=== PATIENT | male | born 1950 | race Caucasian/White ===

== ENCOUNTER → 2020-09-25 | Outpatient (CLI) | payer MEDICARE, OTHER ==
[~2020-09-25] MED LIST: ACYC-40 PO; AMLO-150 PO; CALC0.25 PO; CALC200T24 PO; CELE200C PO; DEXA4TAB66 PO; DOCU-131 PO; FENT1PAT75 TD; HYDR-2214 PO; MELO15TA24 PO; OXYC10TA6 PO; POLY17PO5 PO; QUET25TA7 PO; QUET50TA5 PO; QUIN40TA15 PO
== END | disposition home or self-care (01) ==
LOC: CFH 14:36
PROVIDERS: ATTEND Pathology Hematology
DX: C90.00 Multiple myeloma not having achieved remission (principal); Z51.11 Encounter for antineoplastic chemotherapy; Z79.899 Other long term (current) drug therapy

== ENCOUNTER 2020-11-15 12:08 | Emergency (ER) | payer MEDICARE ==
[~2020-11-15] VITALS: Ht 162.6 cm; Wt 57.6 kg
--- NOTE | 2020-11-15 13:23 | NUR ---
PT HAS CO CONSPATION FROM CHEMO AND NARCOTICS. 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 IMAGE COMPLETE
[2020-11-15] MEDS ORDERED: METHYLNALTREXONE 12 MG/0.6 ML SYR SQ ONE ×2 (14:30→14:58)
--- NOTE | 2020-11-15 14:41 | NUR ---
MEDS ORDERED FROM PHARMACY
--- NOTE | 2020-11-15 15:30 | NUR ---
Pt DOES NOT HAVE URGE FOR BM AFTER RELISTOR
[2020-11-15] MEDS ORDERED: PINK LADY ENEMA 490 ML BOTTLE PR ONE (16:00)
--- NOTE | 2020-11-15 16:54 | NUR ---
pink lady administered. pt laying on side. call light in reach
[2020-11-15] MEDS ORDERED: MAGNESIUM CITRATE 300ML ORAL SOL ONE (18:14)
--- NOTE | 2020-11-15 18:22 | NUR ---
PT GIVEN MAG CITRATE. WILL OBSERVER TO SEE IF PT HAS BM. SEEN BY
[2020-11-15] MEDS ORDERED: MAGNESIUM CITRATE 300ML ORAL SOL PO ONE (18:30)
--- NOTE | 2020-11-15 18:40 | NUR ---
GIVEN WARM BLANKETS, PILLOW. PT DRINKING MAG CITRATE
--- NOTE | 2020-11-15 18:44 | NUR ---
REPORT TO JIA
[2020-11-15 18:50] VITALS: BP 145/86
--- NOTE | 2020-11-15 18:50 | NUR ---
FIRST ENCOUNTER WITH PATIENT. PATIENT RESTING IN STRETCHER DRINKING MAG CITRATE. DENIES ANY NEEDS AT THIS TIME. CALL TAVARES IN REACH. BED IN LOW POSITION. VSS. WILL CONTINUE TO MONITOR.
--- NOTE | 2020-11-15 20:30 | NUR ---
DR. HUDSON AND THIS RN AT BEDSIDE. PATIENT STILL UNABLE TO HAVE BM. WILL TRY ANOTHER ENEMA.
--- NOTE | 2020-11-15 20:50 | NUR ---
PATIENT GIVEN SALINE ENEMA PER VERBAL ORDER FROM MD HUDSON
--- NOTE | 2020-11-15 21:19 | NUR ---
RN TO BEDSIDE TO CHECK ON PATIENT. PATIENT SITTING ON BEDSIDE COMMODE- NO BM JUST GAS. WILL CONTINUE TO MONITOR.
--- NOTE | 2020-11-15 22:06 | NUR ---
Patient given discharge instructions and they have confirmed that they understand the instructions. Patient ambulatory with steady gait. NAD, all questions answered appropriately, denies additional needs at this time. No personal belongings left in room after discharge.
== END 2020-11-15 22:16 | disposition home or self-care (01) ==
LOC: ED 13:21
DX: K59.00 Constipation, unspecified (principal); R11.2 Nausea with vomiting, unspecified; R94.31 Abnormal electrocardiogram [ECG] [EKG]
CPT/HCPCS: 74021; 93005; 96372; 99284